=== PATIENT | female | born 1950 | race Caucasian/White ===

== ENCOUNTER 2016-09-22 05:44 | Observation (INO) | payer BC, OTHER ==
--- NOTE | ~2016-09-22 | HP ---
History And Physical [facility] [address] [place]. [address] NAME: KATIE RAMIREZ : 52 STATUS : ADM Darell PAT#: [id number] AGE: 66 ADM/REG DATE : 09/22/16 MR#: [id number] REPORT SERV DATE: 09/22/16 DICTATED BY: CAROLYN CINTRON DATE: 09/22/16 REPORT STATUS : Draft TRANSCRIBED BY: MODL DATE: 09/22/16 DATE OF ADMISSION: 09/22/2016 CHIEF COMPLAINT: A 66-year-old female with progressive cirrhosis and now lower extremity edema and evidence of ascites. HISTORY OF PRESENTING ILLNESS: The patient's history was obtained through an interview with patient coupled with review of [facility] records. The patient has longstanding cirrhosis but has been progressing. She has been told recently that it is secondary to PENNY, with her previous records that seemed to indicate there may be a component of autoimmune hepatitis as well. She has had lymphedema, pancytopenia, varices, and hepatic encephalopathy. Recently, she has had increasing abdominal bloating that has been pressing on her chest making her feel short of breath. She states that the swelling is "climbing up and up." She has also had increasing lower extremity edema that has become increasingly uncomfortable. It seems that the right leg is more pronounced than the left and the right leg has more pain, and it is aching, tight, and shooting pain that gets up to 9/10 severity making it difficult to walk. She describes shortness of breath characterized by dyspnea on exertion, but no specific orthopnea is described. No cough. She has had nausea and some episodes of vomiting, but there has been no blood in her vomit. No bright red blood per rectum. No diarrhea. The last three days have been the worst she has felt from these symptoms. REVIEW OF SYSTEMS: Otherwise, a complete review of systems was obtained and was negative. PAST MEDICAL HISTORY: 1. PENNY cirrhosis with possible component of autoimmune hepatitis as well? 2. Pancytopenia. 3. Lymphedema. 4. Varices with history of banding. 5. Hepatic encephalopathy. 6. Diabetes. 7. Esophageal stricture with dilatation seen by Dr. Roque. 8. Obstructive sleep apnea. 9. Urinary tract infection. 10.Nephrolithiasis. PAST SURGICAL HISTORY: and hemorrhoidectomy. History And Physical [place] [address] [place]. [address] NAME: AKTIE RAMIREZ : 52 STATUS : ADM Darell PAT#: [id number] AGE: 66 ADM/REG DATE : 09/22/16 MR#: [id number] REPORT SERV DATE: 09/22/16 DICTATED BY: CAROLYN CINTRON DATE: 09/22/16 REPORT STATUS : Draft TRANSCRIBED BY: JODY DATE: 09/22/16 ALLERGIES: NO KNOWN DRUG ALLERGIES. SOCIAL HISTORY: No tobacco abuse. No alcohol abuse. She lives with her son. She is single. FAMILY HISTORY: Cancer and diabetes. CURRENT MEDICATIONS: She is on a dose of Lasix and spironolactone, but otherwise medications unknown at this time, that have been requested by Pharmacy. PHYSICAL EXAMINATION: VITAL SIGNS: Temperature 98.1, pulse 90, blood pressure 141/72, respiratory rate 20, O2 saturation 96% on room air. GENERAL: Pleasant, cooperative female, in no evidence of severe distress at this time. HEENT: Pupils equal, round, and reactive to light. No conjunctival pallor. No scleral icterus. Nares are patent. Oropharynx is clear of obstruction. Moist mucous membranes. NECK: Trachea midline. No thyromegaly. LYMPH: No cervical lymphadenopathy. No supraclavicular lymphadenopathy. RESPIRATORY: Clear to auscultation at bases. No wheezes. No rales. No rhonchi. A slightly labored respiratory effort. CARDIOVASCULAR: Regular rate and rhythm. No murmurs, rubs, or gallops. The patient have deeply pitting lower extremity edema that extends up to the groin and upper thigh symmetrically to by exam. There may be some slight increased swelling around her knee and calf in the right side compared to the left. ABDOMEN: Has significant distention with what seems to be a positive fluid wave. It is tender throughout, but not to the point of guarding or rebound. She has no appreciable hepatosplenomegaly by exam. DERMATOLOGICAL: Warm and dry extremities. No pallor. No cyanosis. PSYCHIATRIC: Normal affect. Good mood. Alert and oriented x3. LABORATORY DATA: White blood count 8.9, hemoglobin 14, hematocrit 34, platelets 122. Sodium 141, potassium 4.0, chloride 107, bicarb 23, BUN 20, creatinine 1.52, glucose 144, brain natriuretic peptide 58, albumin 2.0. INR 1.5. AST 111, ALT 61, alkaline phosphatase 237, total bilirubin 3.8. STUDIES: CT scan of the abdomen shows moderate ascites, cirrhosis, splenomegaly, nephrolithiasis. ASSESSMENT AND PLAN: 1. Anasarca, place on IV Lasix, spironolactone. 2. Ascites, obtain an ultrasound-guided paracentesis for therapeutic measures. 3. PENNY cirrhosis with history of autoimmune hepatitis as well. 4. Renal insufficiency. History And Physical [address] [address] NAME: KATIE RAMIREZ : 52 STATUS : ADM Darell PAT#: [id number] AGE: 66 ADM/REG DATE : 09/22/16 MR#: [id number] REPORT SERV DATE: 09/22/16 DICTATED BY: CAROLYN CINTRON DATE: 09/22/16 REPORT STATUS : Draft TRANSCRIBED BY: MODJose G DATE: 09/22/16 KPL/JODY Carolyn Cintron M.D. / [id number] CC: Johny Mendez M.D.
--- NOTE | ~2016-09-22 | DS ---
Discharge Summary [place] [address] [place]. [address] NAME: KATIE RAMIREZ : 52 STATUS : DIS Darell PAT#: [id number] AGE: 66 ADM/REG DATE : 09/22/16 MR#: [id number] REPORT SERV DATE: 09/25/16 DICTATED BY: MARV MOON DATE: 09/24/16 REPORT STATUS : Draft TRANSCRIBED BY: MODL DATE: 09/24/16 ADMISSION DATE: 09/22/2016 DISCHARGE DATE: 09/24/2016 DISCHARGE DIAGNOSES: Include: 1. Anasarca, severe. 2. Ascites, severe. 3. Nonalcoholic steatohepatitis cirrhosis. 4. Acute kidney injury on chronic kidney disease, stage 3. 5. Hypoalbuminemia, most recent albumin 2.3. 6. Mild leukocytosis, resolved; most recent white blood cells 10.1. 7. Diabetes type 2, controlled, with hemoglobin A1c of 6.0. DISCHARGE MEDICINES: As follows: Bumex 1 mg daily, new prescription written; Levemir insulin 32 units subcutaneously at bedtime; Reglan 5 mg four times a day; Prilosec 40 mg twice a day; Xifaxan 550 mg twice a day; Aldactone 100 mg twice a day; Carafate 1 g p.o. twice a day; Voltaren topical gel, 1%, apply daily p.r.n.; Mag-Ox 400 mg daily; potassium 10 mEq daily; and tramadol 50 mg every 4 to 6 hours p.r.n. for pain. HISTORY OF PRESENT ILLNESS: This is a very pleasant 66-year-old female who presented with significant lower extremity edema and ascites; please see the initial H and P of Dr. Augustine Castelan. This patient was admitted to the Hospitalist Service for further evaluation and treatment. She was given IV diuresis and lab work was ordered and followed. PROCEDURES AND IMAGING DURING THIS ADMISSION: Included a CT of the abdomen and pelvis showing moderate ascites throughout the abdomen and pelvis, diffuse subcutaneous edema and anasarca, cirrhotic liver, mild splenomegaly, varices surrounding the lower thoracic esophagus as well as within the anterior abdominal wall compatible with portal hypertension; venous Doppler ultrasound of the lower extremities showing no evidence for DVT on the right or left. Paracentesis performed on 09/22/2016, successful evacuation of 3500 mL of clear yellow fluid. HOSPITAL COURSE: I began seeing the patient on 09/22/2016, and in review, noted significantly low albumin, so her Lasix was discontinued and IV Bumex and albumin were utilized for aggressive diuresis which she tolerated well. Paracentesis was performed, and she tolerated that well with 3500 mL of fluid aspirated. She was switched to p.o. Bumex on 09/23/2016, and I have discussed with the patient discharging home on p.o. Bumex as well and not to resume her Lasix dose. She continued to do well, was able to ambulate in the room, feeling significantly better, and was felt safe for discharge home on 09/24/2016 with followup with primary care in two to three weeks and follow up with GI, Dr. Roque, in two to three weeks as well. Instructed her to recheck her BMP at that time. The patient is agreement with this plan going forward, so we discharged home with above medicines. Please note greater than 30 minutes was spent on this discharge, for new medication teaching, follow up planning, and further disposition. Discharge Summary [place] [address] [place]. [address] NAME: KATIE RAMIREZ : 52 STATUS : DIS Darell PAT#: [id number] AGE: 66 ADM/REG DATE : 09/22/16 MR#: [id number] REPORT SERV DATE: 09/25/16 DICTATED BY: MARV MOON DATE: 09/24/16 REPORT STATUS : Draft TRANSCRIBED BY: JODY DATE: 09/24/16 MARYELLEN/JODY Marv Moon NP / [id number]
[2016-09-22 02:16] LABS: BASOPHILS 0.6 %; BASOPHILS ABSOLUTE 0.05 10/3/uL (0.0-0.16); EOSINOPHILS 2.7 %; EOSINOPHILS ABSOLUTE 0.24 10/3/uL (0.0-0.53); ER CBC TAT 0 Hrs 07 Mins; HEMATOCRIT 39.1 % (36.0-48.0); HEMOGLOBIN 13.8 g/dL (12.0-16.0); IMMATURE GRANULOCYTES 0.4 %; IMMATURE GRANULOCYTES ABSOLUTE 0.04 10/3/uL (0.0-0.11); LYMPHOCYTES 17.2 %; LYMPHOCYTES ABSOLUTE 1.53 10/3/uL (0.67-4.30); MEAN CORPUS HGB CONC 35.3 g/dL (32.0-36.0); MEAN CORPUSCULAR HEMOGLOB 34.2 pg (26.0-34.0); MEAN PLATELET VOLUME 11.9 fL (9.2-13.0); MONOCYTES 16.3 %; MONOCYTES ABSOLUTE 1.45 10/3/uL (0.21-1.20); NEUTROPHILS 62.8 %; NEUTROPHILS ABSOLUTE 5.58 10/3/uL (2.02-8.40); PLATELET COUNT 122 10/3/uL (150-400); RED CELL COUNT 4.03 10/6/uL (4.0-5.6); WHITE BLOOD CELLS 8.9 10/3/uL (4.5-10.5)
[2016-09-22 02:17] LABS: MANUAL DIFF NO %
[2016-09-22 02:23] LABS: INTERNATIONAL NORMAL RATI 1.5 UNITS (-); PARTIAL THROMBO TIME 37.6 SEC (22.5-37.2); PROTIME (NOT ORD) 17.7 SEC (12.0-14.5)
[2016-09-22 02:35] LABS: A/G RATIO 0.4 (0.7-1.9); ALKALINE PHOSPHATASE 237 U/L (45-117); BUN (BLOOD UREA NITROGEN) 20 MG/DL (6-23); CALCIUM, SERUM 8.2 MG/DL (8.5-10.4); CHLORIDE, SERUM 107 MMOL/L (96-112); CO2 (CARBON DIOXIDE) 23 MMOL/L (24-34); CREATININE 1.52 MG/DL (0.55-1.02); DIRECT BILIRUBIN 1.5 MG/DL (0.0-0.4); GFR AFRICAN AMERICAN 41 ML/MIN (>=60); GFR NON AFRICAN AMERICAN 36 ML/MIN (>=60); GLUCOSE, SERUM 144 MG/DL (60-99); INDIRECT BILIRUBIN(NOT ORDER) 2.3 MG/DL (0.1-0.9); SGOT(AST) 111 U/L (5-40); SGPT(ALT) 61 U/L (5-65); SODIUM, SERUM 141 MMOL/L (135-148); TOTAL BILIRUBIN 3.8 MG/DL (0-1.2)
[2016-09-22 02:38] LABS: B NATRIURETIC PEPTIDE (BNP) 57.6 PG/ML (< 100.0)
[~2016-09-22 05:44] MED LIST: *UNABLE3; AMOXIL500 MG PO; DEXTROAMPHET10 MG PO; FOLIC PO; GENERLAC PO; GLUCOPHAGE1000 MG PO; GLUCPH PO; I10 PO; JANUVIA100 MG PO; KAPIDEX60 MG PO; L20 PO; L40 PO; LACT30UDL PO; LEVEMIR SC; LOM PO; LYRICA100 MG PO; METHOC750B PO; MOBIC15 MG PO; NYSTATPOW TOP; OXYCOD PO; PRILO PO; PRILOSEC40 MG PO; PRIN5 PO; QNASL8.7 GM NAS; REG5 PO; SPIRO50 PO; SUCR PO; XIFAXAN550 MG PO
[2016-09-22] MEDS ORDERED: SPIR100 PO (08:17)
[2016-09-22] MEDS ORDERED: PRILOSEC40 MG PO (08:17)
[2016-09-22] MEDS ORDERED: LEVEMFLXPN SC (08:17)
[2016-09-22] MEDS ORDERED: REG5 PO (08:18)
[2016-09-22] MEDS ORDERED: XIFAXAN550 MG PO (08:18)
[2016-09-22] MEDS ORDERED: L40 PO (08:18)
[2016-09-22] MEDS ORDERED: SUCR PO (08:18)
[2016-09-22] MEDS ORDERED: VOLTAREN1 % TOP (08:19)
[2016-09-23 04:56] LABS: BASOPHILS 0.2 %; BASOPHILS ABSOLUTE 0.02 10/3/uL (0.0-0.16); EOSINOPHILS 0.7 %; EOSINOPHILS ABSOLUTE 0.09 10/3/uL (0.0-0.53); HEMOGLOBIN 11.2 g/dL (12.0-16.0); IMMATURE GRANULOCYTES 0.4 %; IMMATURE GRANULOCYTES ABSOLUTE 0.05 10/3/uL (0.0-0.11); LYMPHOCYTES 9.2 %; LYMPHOCYTES ABSOLUTE 1.13 10/3/uL (0.67-4.30); MEAN CORPUSCULAR HEMOGLOB 33.9 pg (26.0-34.0); MEAN PLATELET VOLUME 11.3 fL (9.2-13.0); MONOCYTES 4.9 %; NEUTROPHILS 84.6 %; NEUTROPHILS ABSOLUTE 10.35 10/3/uL (2.02-8.40); PLATELET COUNT 96 10/3/uL (150-400); RBC DISTRIBUTION WIDTH 16.1 % (12.0-16.0); WHITE BLOOD CELLS 12.2 10/3/uL (4.5-10.5)
[2016-09-23 04:57] LABS: MANUAL DIFF NO %
[2016-09-23 05:12] LABS: INTERNATIONAL NORMAL RATI 1.8 UNITS (-); PARTIAL THROMBO TIME 38.3 SEC (22.5-37.2)
[2016-09-23 05:13] LABS: PROTIME (NOT ORD) 20.6 SEC (12.0-14.5)
[2016-09-23 05:25] LABS: ALBUMIN 2.3 G/DL (3.5-5.0); BUN (BLOOD UREA NITROGEN) 19 MG/DL (6-23); CALCIUM, SERUM 7.7 MG/DL (8.5-10.4); CHLORIDE, SERUM 101 MMOL/L (96-112); CO2 (CARBON DIOXIDE) 23 MMOL/L (24-34); CREATININE 1.53 MG/DL (0.55-1.02); GFR AFRICAN AMERICAN 41 ML/MIN (>=60); GFR NON AFRICAN AMERICAN 35 ML/MIN (>=60); GLUCOSE, SERUM 158 MG/DL (60-99); POTASSIUM, SERUM 4.2 MMOL/L (3.5-5.3); SGOT(AST) 81 U/L (5-40); SGPT(ALT) 47 U/L (5-65); SODIUM, SERUM 135 MMOL/L (135-148); TOTAL PROTEIN 6.2 G/DL (6.0-8.5); TROPONIN I <0.02 NG/ML (<0.05)
[2016-09-23 05:26] LABS: A/G RATIO 0.6 (0.7-1.9); ALKALINE PHOSPHATASE 157 U/L (45-117); GLOBULIN 3.9 G/DL (2.5-4.1); TOTAL BILIRUBIN 4.8 MG/DL (0-1.2)
[2016-09-23 12:14] LABS: ASCORBIC ACID (UR NOT ORDER) NEG (NEG); BILIRUBIN, URINE NEGATIVE (NEG); KETONE, URINE NEGATIVE (NEG); LEUKOCYTE ESTERASE(NOT OR NEG (NEG); WBC (NOT ORDERED) (RFLEX) 1 (0-5)
[2016-09-24 07:34] LABS: BUN (BLOOD UREA NITROGEN) 21 MG/DL (6-23); CALCIUM, SERUM 7.5 MG/DL (8.5-10.4); CHLORIDE, SERUM 100 MMOL/L (96-112); CO2 (CARBON DIOXIDE) 26 MMOL/L (24-34); CREATININE 1.55 MG/DL (0.55-1.02); GFR AFRICAN AMERICAN 40 ML/MIN (>=60); GFR NON AFRICAN AMERICAN 35 ML/MIN (>=60); GLUCOSE, SERUM 140 MG/DL (60-99); SODIUM, SERUM 136 MMOL/L (135-148)
[2016-09-24 07:35] LABS: BASOPHILS 0.3 %; BASOPHILS ABSOLUTE 0.03 10/3/uL (0.0-0.16); EOSINOPHILS 0.9 %; EOSINOPHILS ABSOLUTE 0.09 10/3/uL (0.0-0.53); HEMATOCRIT 30.2 % (36.0-48.0); HEMOGLOBIN 10.7 g/dL (12.0-16.0); IMMATURE GRANULOCYTES 1.1 %; IMMATURE GRANULOCYTES ABSOLUTE 0.11 10/3/uL (0.0-0.11); LYMPHOCYTES 9.3 %; LYMPHOCYTES ABSOLUTE 0.94 10/3/uL (0.67-4.30); MEAN CORPUS HGB CONC 35.4 g/dL (32.0-36.0); MEAN CORPUSCULAR HEMOGLOB 33.8 pg (26.0-34.0); MEAN CORPUSCULAR VOLUME 95.3 fL (80-100); MEAN PLATELET VOLUME 12.1 fL (9.2-13.0); MONOCYTES 12.7 %; MONOCYTES ABSOLUTE 1.28 10/3/uL (0.21-1.20); NEUTROPHILS 75.7 %; NEUTROPHILS ABSOLUTE 7.63 10/3/uL (2.02-8.40); PLATELET COUNT 75 10/3/uL (150-400); RED CELL COUNT 3.17 10/6/uL (4.0-5.6); WHITE BLOOD CELLS 10.1 10/3/uL (4.5-10.5)
[2016-09-24 07:39] LABS: MANUAL DIFF NO %
[2016-09-24] MEDS ORDERED: BUM1 PO (15:36)
[2016-09-24] MEDS ORDERED: ULTRAM50 PO (15:36)
[2016-09-24] MEDS ORDERED: MAGOX4 PO (15:37)
[2016-09-24] MEDS ORDERED: KDUR10 PO (15:38)
[2016-12-20] MEDS ORDERED: XIFAXAN550 MG PO (17:00)
[2016-12-20] MEDS ORDERED: BUM1 PO (17:00)
[2016-12-20] MEDS ORDERED: ULTRAM50 PO (17:01)
[2016-12-20] MEDS ORDERED: VOLTAREN1 % TOP (17:03)
[2016-12-20] MEDS ORDERED: LEVEMIR SC (17:04)
[2016-12-20] MEDS ORDERED: REG5 PO (17:05)
[2016-12-20] MEDS ORDERED: PRILOSEC40 MG PO (17:05)
[2016-12-20] MEDS ORDERED: SPIR100 PO (17:06)
[2016-12-20] MEDS ORDERED: KDUR10 PO (17:06)
[2016-12-20] MEDS ORDERED: SUCR PO (17:07)
[2017-03-03] MEDS ORDERED: BUM1 PO (03:57)
[2017-03-03] MEDS ORDERED: LEVEMIR SC (03:57)
[2017-03-03] MEDS ORDERED: LOP25 PO (03:58)
[2017-03-03] MEDS ORDERED: REG5 PO (03:58)
[2017-03-03] MEDS ORDERED: SPIRO50 PO (03:59)
[2017-03-03] MEDS ORDERED: PROTONIX PO (03:59)
[2017-03-03] MEDS ORDERED: ZOL50 PO (04:00)
[2017-03-03] MEDS ORDERED: XIFAXAN550 MG PO (04:00)
[2017-03-03] MEDS ORDERED: ULTRAM50 PO (04:01)
[2017-03-29] MEDS ORDERED: GENERLAC PO (18:46)
[2017-03-29] MEDS ORDERED: SUCR PO (18:47)
== END 2016-09-24 18:47 | disposition home or self-care (01) ==
LOC: ER 05:44 → 1SO 06:37
PROVIDERS: Hospitalist; Nurse Practitioner; Nurse Practitioner Family
PROC: 0W9G3ZZ Drainage of Peritoneal Cavity, Percutaneous Approach (ICD-10-PCS; principal; 2016-09-22)
DX: R18.8 Other ascites (principal); K74.60 Unspecified cirrhosis of liver; E11.22 Type 2 diabetes mellitus with diabetic chronic kidney disease; N18.3 Chronic kidney disease, stage 3 (moderate); N17.9 Acute kidney failure, unspecified; E88.09 Other disorders of plasma-protein metabolism, not elsewhere classified; M19.90 Unspecified osteoarthritis, unspecified site; I12.9 Hypertensive chronic kidney disease with stage 1 through stage 4 chronic kidney disease, or unspecified chronic kidney disease; D61.818 Other pancytopenia; G47.33 Obstructive sleep apnea (adult) (pediatric); Z87.440 Personal history of urinary (tract) infections; Z87.442 Personal history of urinary calculi; Z98.890 Other specified postprocedural states; Z79.899 Other long term (current) drug therapy; Z83.3 Family history of diabetes mellitus; Z90.89 Acquired absence of other organs
CPT/HCPCS: 49083; 74176; 80048; 80053; 81001; 82140; 82248; 82962; 83036; 83735; 83880; 84443; 84484; 85025; 85610; 85730; 87040; 93970; 96375; 96376; 99285; A9270-GY; G0378; J2405; P9047

== ENCOUNTER 2016-10-16 20:15 | Inpatient (IN) | payer BC, OTHER ==
--- NOTE | ~2016-10-16 | DS ---
Discharge Summary [facility] [address] [place]. [address] NAME: KATIE RAMIREZ : 52 STATUS : [facility]#: [id number] AGE: 66 ADM/REG DATE : 10/16/16 MR#: [id number] REPORT SERV DATE: 10/21/16 DICTATED BY: SIM ANDRADE DATE: 10/20/16 REPORT STATUS : Draft TRANSCRIBED BY: MODL DATE: 10/20/16 ADMISSION DATE: 10/16/2016 DISCHARGE DATE: 10/20/2016 Attending was the Hospitalist Service. CONSULTANTS: Cruz Roque M.D. DISCHARGE DIAGNOSES: 1. Anasarca. 2. Ascites. 3. Nonalcoholic steatohepatitis cirrhosis. 4. Diabetes mellitus type 2. 5. Hypoalbuminemia. 6. Pancytopenia. 7. Coagulopathy of liver disease. 8. Chronic lymph edema. 9. Obstructive sleep apnea. 10.Morbid obesity. 11.Chronic kidney disease, stage 3. PROCEDURES: On 10/17/2016, the patient underwent a paracentesis with a technically successful ultrasound-guided paracentesis and 3.5 L of fluid evacuated. IMAGIN10/16/2016: Portable chest x-ray revealed no acute cardiopulmonary abnormality identified. LABORATORY STUDIES: Discharge laboratory studies: 1. 10/20/2016: Hepatic panel and basic metabolic panel revealed a sodium of 142, potassium 4.1, chloride 103, CO2 of 31, BUN 20, creatinine 1.29, GFR 43. Glucose 90, calcium 8.7, magnesium 1.6, total protein 6.3, albumin 3.5, direct bilirubin 0.9, indirect bilirubin 3.3, total bilirubin 4.2, alkaline phosphatase 143, ALT 31, AST 59. 2. 10/20/2016: CBC revealed a white count of 4.6, RBC 2.91, hemoglobin 9.8, hematocrit 28.4, and platelets 82,000. PT 22.9 and INR 2.0. 3. 10/16/2016: Ammonia level 23. 4. 10/16/2016: BMP 54.2. HISTORY OF PRESENT ILLNESS: For complete history, please refer to admission H and P by Dr. Shawn Burnett. Briefly, Ms Grant, presented to the emergency room on date of admission with complaints of abdominal bloating, distention, and shortness of breath. She has a history of non- alcoholic steatohepatitis cirrhosis with chronic lower extremity lymphedema and recurrent ascites. She described a progressively worsening abdominal distention, bloating, and shortness of breath and lower extremity edema. She was admitted to the Hospitalist Service for further evaluation and treatment. Discharge Summary [place] [address] [address] NAME: KATIE RAMIREZ : 52 STATUS : DIS IN [facility]#: [id number] AGE: 66 ADM/REG DATE : 10/16/16 MR#: [id number] REPORT SERV DATE: 10/21/16 DICTATED BY: SIM ANDRADE DATE: 10/20/16 REPORT STATUS : Draft TRANSCRIBED BY: JODY DATE: 10/20/16 HOSPITAL COURSE: Ms. Ramirez was admitted to Med/Surg telemetry. She was provided with supplemental oxygen p.r.n. She was given an 1800 calorie ADA diet 2 g sodium restriction with 1.2 L fluid restriction. Laboratory studies were ordered. She was provided with DVT prophylaxis in the form of DERRICK hose and sequential hose. She was provided with p.r.n. antiemetics as well as a subcu insulin sliding scale. She was scheduled for ultrasound- guided paracentesis upon admission. She was also given IV diuretics in the form of Bumex 1 mg IV q.12 hours. In addition, she received albumin 25 g IV q.12 hours 30 minutes prior to IV diuretic. I initially saw the patient on 10/17/2016 as she was getting on the stretcher to go have her paracentesis. She complained of significant dyspnea on exertion and was dyspneic just moving up in the stretcher. Her vital signs were stable, and she describes like feeling "like I am 9 months ." She underwent a successful paracentesis as above. Dr. Roque was consulted upon admission and saw Ms. Grant on 10/17/2016 with recommendations for increasing her albumin to four times a day with the ultimate goal of reaching an albumin level of greater than 4.0. On 10/18/2016, Ms. Grant was feeling much better. IV diuresis and IV albumin continued. Her albumin level increased to 2.4 on this date, from 2.0 initially. certified diabetes educator did see the patient on 10/18/2016. On 10/19/2016, Ms. Ramirez was continuing to feel much better. Her weight was coming down nicely with the diuresis. Her lower extremity edema was improving. She denied any shortness of breath or any other symptoms. On 10/19/2016, Dr. Roque saw her in the evening and was okay with discharging the patient with albumin level of 3.3 or greater. On 10/20/2016, Ms. Ramirez, was overall doing well. Her weight had come down from 142 kg to 130 kg. She denied any shortness of breath. Her oxygen saturation was running from 95% to 98%. Blood pressure was 133/64. She was in no acute distress and was requesting to go home. Her bilateral lower extremity edema improved. She was tolerating her diet without any nausea or vomiting. She was up ambulatory in the room. She denied shortness of breath and overall improved significantly from her admission. Therefore, it was felt that she was safe for discharge home. Therefore, on the evening of 10/20/2016, she did discharge home in stable condition. DISCHARGE INSTRUCTIONS: 1. Diet: An 1800 calorie ADA, 2 g sodium diet is recommended. 2. Activity as tolerated. MEDICATIONS: Are as follows: 1. Sliding scale insulin level 1 q.a.c. 2. Magnesium oxide 400 mg p.o. daily. 3. Reglan 5 mg p.o. before meals and at bedtime. 4. Prilosec 40 mg p.o. b.i.d. 5. Potassium chloride 10 mEq p.o. daily. 6. Xifaxan 550 mg p.o. b.i.d. 7. Aldactone 100 mg p.o. b.i.d. 8. Carafate 1 g p.o. b.i.d. 9. Levemir insulin 26 units subcu at bedtime. 10.Bumex 1 mg p.o. daily. 11.Tramadol 50 mg p.o. four times a day p.r.n. 12.Voltaren gel topically p.r.n. Discharge Summary [facility] [address] [place]. [address] NAME: KATIE RAMIREZ : 52 STATUS : DIS IN [facility]#: [id number] AGE: 66 ADM/REG DATE : 10/16/16 MR#: [id number] REPORT SERV DATE: 10/21/16 DICTATED BY: SIM ANDRADE DATE: 10/20/16 REPORT STATUS : Draft TRANSCRIBED BY: JODY DATE: 10/20/16 OTHER DISCHARGE INSTRUCTIONS: Include Ms. Grant is to follow up with her primary care provider, Carol Hernandez, nurse practitioner, at [facility] in 7-10 days. She will also follow up with Dr. Roque in one month. VICENTE/JODY SHAKIR CamachoP- / [id number] CC: Carol Roque M.D.
--- NOTE | ~2016-10-16 | HP ---
History And Physical [place] [address] [place]. [address] NAME: KATIE RAMIREZ : 52 STATUS : ADM IN [facility]#: [id number] AGE: 66 ADM/REG DATE : 10/16/16 MR#: [id number] REPORT SERV DATE: 10/17/16 DICTATED BY: DILLON LAFLEUR DATE: 10/16/16 REPORT STATUS : Draft TRANSCRIBED BY: MODJose G DATE: 10/16/16 DATE OF ADMISSION: 10/16/2016 POINT OF ENTRY: [facility] Emergency Department [employer] COOK: Dr. Roque. CHIEF COMPLAINT: Abdominal bloating, distention, and shortness of breath. HISTORY OF PRESENT ILLNESS: Ms Ramirez is a 66-year-old female with history of PENNY, cirrhosis, complicated by chronic lower extremity lymphedema, as well as recurrent ascites, pancytopenia, and portal hypertension with esophageal varices who presents to the emergency department today with reports of a two to three-day history of progressive worsening abdominal bloating, distention, shortness of breath, as well as lower extremity edema. The patient was admitted to the Hospitalist Service in middle of September for similar complaints of ascites and anasarca. She underwent paracentesis which removed 3.5 L of fluid as well as brisk IV diuresis for patient's anasarca. The patient states that at the time of discharge, she was feeling well. She had minimal lower extremity edema. She had no shortness of breath or dyspnea on exertion and her abdominal bloating and distention has significantly improved. Since discharge, the patient states compliance with her Bumex as well as her Aldactone. She states that she generally avoids salt, but says that she is not strictly adherent to sodium- restricted diet. She is not tracking her fluid intake nor is she weighing herself on a daily basis. Beginning about two to three days ago, she started to notice fluid buildup primarily in her abdomen with bloating and distention as well as anorexia and some shortness of breath. She does report some lower extremity which may be slightly worsened, but is still significantly improved compared to her prior admission Initial evaluation in the emergency department for a chest x-ray that is clear. Her labs are fairly unremarkable and unchanged compared to prior admission. The patient was given a milligram of IV Bumex and admitted to the Hospitalist Service. COMPREHENSIVE SYSTEM REVIEW: Otherwise, negative unless listed in the history of present illness. PAST MEDICAL HISTORY: 1. Nonalcoholic steatohepatitis with cirrhosis. 2. Portal hypertension with esophageal varices, status post banding. 3. Recurrent ascites. 4. Lymphedema and anasarca. 5. Pancytopenia. 6. History of hepatic encephalopathy. History And Physical [address] [address] NAME: KATIE RAMIREZ : 52 STATUS : ADM IN [facility]#: [id number] AGE: 66 ADM/REG DATE : 10/16/16 MR#: [id number] REPORT SERV DATE: 10/17/16 DICTATED BY: DILLON LAFLEUR DATE: 10/16/16 REPORT STATUS : Draft TRANSCRIBED BY: JODY DATE: 10/16/16 7. Insulin-dependent diabetes mellitus type 2. 8. Obstructive sleep apnea. 9. Morbid obesity. 10.History of chronic kidney stage III. 11.Hypoalbuminemia. SURGICAL HISTORY: 1. . 2. Hemorrhoidectomy. ALLERGIES: NO KNOWN DRUG ALLERGIES. HOME MEDICATIONS: 1. Bumex 1 mg daily. 2. Voltaren topical gel one application topical p.r.n. daily. 3. Insulin sliding scale. 4. Levemir 32 units at bedtime. 5. Magnesium oxide 400 mg daily. 6. Reglan 5 mg q.i.d. 7. Prilosec 40 mg b.i.d. 8. Potassium chloride 10 mEq daily. 9. Rifaximin 500 mg b.i.d. 10.Aldactone 100 mg b.i.d. 11.Carafate 1 g b.i.d. 12.Tramadol 50 mg q.4 hours p.r.n. SOCIAL HISTORY: Denies any tobacco, alcohol, or illicits. FAMILY MEDICAL HISTORY: Mother with diabetes, hypertension, and obesity. Father with history of stomach cancer. Siblings history is largely unknown. LABS AND IMAGIN. White count is 9.3, hemoglobin is 13.3, hematocrit is 37.3, and platelet count is 104. INR is pending at the time of dictation. 2. Sodium is 139, potassium 4.1, chloride 107, carbon dioxide 23, BUN 10, creatinine 1.04, glucose is 154, calcium is 7.8. Protein is 6.9, albumin is 2.0, bilirubin is 4.5, ALT is 52, AST is 94, alkaline phosphatase is 323. 3. Lipase is 269. 4. BNP is 54. 5. Ammonia level is 23. 6. Urinalysis: Specific gravity 1.006, hazy, but no evidence of any infection. STUDIES: 1. Her chest x-ray, per my review, shows some mild pulmonary venous congestion, but otherwise, no focal infiltrate, consolidation, or effusion. 2. EKG, per my review shows normal sinus rhythm without evidence of any acute ischemia or infarction. History And Physical [address] [address] NAME: KATIE RAMIREZ : 52 STATUS : ADM IN [facility]#: [id number] AGE: 66 ADM/REG DATE : 10/16/16 MR#: [id number] REPORT SERV DATE: 10/17/16 DICTATED BY: DILLON LAFLEUR DATE: 10/16/16 REPORT STATUS : Draft TRANSCRIBED BY: JODY DATE: 10/16/16 PHYSICAL EXAMINATION: VITAL SIGNS: Temperature is 97.8 degrees Fahrenheit, pulse is 96, respirations 22, saturating 97% on room air, blood pressure is 122/75. GENERAL: The patient is awake, alert, in no acute distress. Resting comfortably in bed. She is a morbidly obese, female. Family is at bedside. HEENT: Atraumatic and normocephalic. Moist mucous membranes. Pupils are equal, round, reactive to light and accommodation. Extraocular eye movements are intact. Some very faint scleral icterus. NECK: No jugular venous distention. No carotid bruits. CARDIAC: Regular rate and rhythm. No murmurs, rubs, or gallops. Normal S1, S2. LUNGS: Decreased breath sounds in the bases with some faint inspiratory rales bilateral bases, otherwise no wheezes, rhonchi, or crackles. ABDOMEN: Obese, soft, nontender, nondistended with good bowel sounds. Positive ascitic fluid wave. EXTREMITIES: Warm and well perfused with 1 to 2+ pitting lower extremity edema. SKIN: Warm and dry. PSYCH: Affect appropriate. NEURO: Alert and oriented x3. Cranial nerves II through XII grossly intact. Speech is normal. Gait not assessed. ASSESSMENT AND PLAN: Ms Ramirez is a 66-year-old female with a known history of nonalcoholic steatohepatitis, cirrhosis, who presents with a two- to three-day history of fluid buildup with lower extremity edema, abdominal bloating, and distention. Problem list: 1. Recurrent ascites. 2. Anasarca. 3. Nonalcoholic steatohepatitis with cirrhosis. 4. Hypoalbuminemia. 5. Insulin-dependent diabetes mellitus type 2. 6. Morbid obesity. 7. Transaminitis. 8. Thrombocytopenia. 9. Coagulopathy of liver disease. 10.History of portal hypertension with esophageal varices. PLAN: 1. Ascites. It appears that she has reaccumulated abdominal ascites. We will schedule her an ultrasound-guided paracentesis. Continue the patient on diuretics with IV Bumex as well as Aldactone with fluid and sodium restriction. 2. Anasarca. We will place her on Bumex 1 mg IV b.i.d. as well as her home Aldactone. We will schedule for albumin administration prior to Bumex therapy to assist with diuresis. Also, encourage fluid and sodium restriction. 3. Hypoalbuminemia. We will provide albumin administration prior to Bumex to assist with diuresis. 4. PENNY with cirrhosis. Per Gastroenterology, we will continue the patient's home History And Physical [address] [address] NAME: KATIE RAMIREZ : 52 STATUS : ADM IN [facility]#: [id number] AGE: 66 ADM/REG DATE : 10/16/16 MR#: [id number] REPORT SERV DATE: 10/17/16 DICTATED BY: DILLON LAFLEUR DATE: 10/16/16 REPORT STATUS : Draft TRANSCRIBED BY: MODL DATE: 10/16/16 medications. 5. Insulin-dependent diabetes mellitus type 2. Continue the patient's home long-acting insulin, level 2 insulin sliding scale. 6. History of coagulopathy of the liver disease. INR is pending at the time of dictation. We will place on TEDs and SCDs given bleeding risk. 7. Shortness of breath. I suspect that this is mainly due to fluid buildup in her abdomen as I do not appreciate any significant evidence of intravascular volume overload, both clinically or radiographically, and BNP is within normal limits. We will provide DuoNeb p.r.n. 8. DVT prophylaxis. TEDs and SCDs, given thrombocytopenia and coagulopathy. 9. Code Status: The patient wished to be full code. JCLobo/MODJose G Dillon Lafleur MD / [id number] CC: Johny Lawler M.D. Richard Sadowitz, M.D.
[~2016-10-16 20:15] MED LIST changes: +BUM1 PO; +KDUR10 PO; +LEVEMFLXPN SC; +MAGOX4 PO; +SPIR100 PO; +ULTRAM50 PO; +VOLTAREN1 % TOP
[2016-10-16 21:14] LABS: BASOPHILS 0.6 %; BASOPHILS ABSOLUTE 0.06 10/3/uL (0.0-0.16); EOSINOPHILS 4.4 %; EOSINOPHILS ABSOLUTE 0.41 10/3/uL (0.0-0.53); ER CBC TAT 0 Hrs 10 Mins; IMMATURE GRANULOCYTES 0.4 %; IMMATURE GRANULOCYTES ABSOLUTE 0.04 10/3/uL (0.0-0.11); LYMPHOCYTES 15.2 %; LYMPHOCYTES ABSOLUTE 1.41 10/3/uL (0.67-4.30); MEAN CORPUS HGB CONC 35.7 g/dL (32.0-36.0); MEAN CORPUSCULAR HEMOGLOB 35.2 pg (26.0-34.0); MEAN PLATELET VOLUME 11.6 fL (9.2-13.0); MONOCYTES 13.8 %; MONOCYTES ABSOLUTE 1.28 10/3/uL (0.21-1.20); NEUTROPHILS 65.6 %; NEUTROPHILS ABSOLUTE 6.09 10/3/uL (2.02-8.40); RBC DISTRIBUTION WIDTH 18.1 % (12.0-16.0); RED CELL COUNT 3.78 10/6/uL (4.0-5.6); WHITE BLOOD CELLS 9.3 10/3/uL (4.5-10.5)
[2016-10-16 21:19] LABS: HEMATOCRIT 37.3 % (36.0-48.0); HEMOGLOBIN 13.3 g/dL (12.0-16.0); MANUAL DIFF NO %; MEAN CORPUSCULAR VOLUME 98.7 fL (80-100); PLATELET COUNT 104 10/3/uL (150-400)
[2016-10-16 21:24] LABS: CALCIUM, SERUM 7.8 MG/DL (8.5-10.4); CHLORIDE, SERUM 107 MMOL/L (96-112); CO2 (CARBON DIOXIDE) 23 MMOL/L (24-34); GLUCOSE, SERUM 154 MG/DL (60-99); POTASSIUM, SERUM 4.1 MMOL/L (3.5-5.3); SGOT(AST) 94 U/L (5-40); SGPT(ALT) 52 U/L (5-65); SODIUM, SERUM 139 MMOL/L (135-148); TOTAL BILIRUBIN 4.5 MG/DL (0-1.2); TOTAL PROTEIN 6.9 G/DL (6.0-8.5)
[2016-10-16 21:27] LABS: BUN (BLOOD UREA NITROGEN) 10 MG/DL (6-23)
[2016-10-16 21:28] LABS: A/G RATIO 0.4 (0.7-1.9); ALKALINE PHOSPHATASE 323 U/L (45-117); CREATININE 1.04 MG/DL (0.55-1.02); GFR AFRICAN AMERICAN 65 ML/MIN (>=60); GFR NON AFRICAN AMERICAN 56 ML/MIN (>=60); GLOBULIN 4.9 G/DL (2.5-4.1)
[2016-10-16 21:33] LABS: B NATRIURETIC PEPTIDE (BNP) 54.2 PG/ML (< 100.0)
[2016-10-16] MEDS ORDERED: MAGOX4 PO (21:55)
[2016-10-16] MEDS ORDERED: NOVOLOG SC (21:56)
[2016-10-16 22:02] LABS: ASCORBIC ACID (UR NOT ORDER) NEG (NEG); BILIRUBIN, URINE NEGATIVE (NEG); ER URINALYSIS TAT 0 Hrs 20 Mins; KETONE, URINE NEGATIVE (NEG); LEUKOCYTE ESTERASE(NOT OR NEG (NEG); NITRITE (URINE) NEG (NEG); WBC (NOT ORDERED) (RFLEX) 4 (0-5)
[2016-10-17 02:40] LABS: BASOPHILS 0.5 %; BASOPHILS ABSOLUTE 0.04 10/3/uL (0.0-0.16); EOSINOPHILS 4.7 %; EOSINOPHILS ABSOLUTE 0.36 10/3/uL (0.0-0.53); HEMATOCRIT 37.3 % (36.0-48.0); HEMOGLOBIN 12.9 g/dL (12.0-16.0); IMMATURE GRANULOCYTES 0.4 %; IMMATURE GRANULOCYTES ABSOLUTE 0.03 10/3/uL (0.0-0.11); LYMPHOCYTES 20.6 %; LYMPHOCYTES ABSOLUTE 1.56 10/3/uL (0.67-4.30); MANUAL DIFF NO %; MEAN CORPUS HGB CONC 34.6 g/dL (32.0-36.0); MEAN CORPUSCULAR HEMOGLOB 34.5 pg (26.0-34.0); MEAN CORPUSCULAR VOLUME 99.7 fL (80-100); MEAN PLATELET VOLUME 11.2 fL (9.2-13.0); MONOCYTES 14.1 %; MONOCYTES ABSOLUTE 1.07 10/3/uL (0.21-1.20); NEUTROPHILS 59.7 %; NEUTROPHILS ABSOLUTE 4.52 10/3/uL (2.02-8.40); PLATELET COUNT 100 10/3/uL (150-400); RBC DISTRIBUTION WIDTH 18.2 % (12.0-16.0); RED CELL COUNT 3.74 10/6/uL (4.0-5.6); WHITE BLOOD CELLS 7.6 10/3/uL (4.5-10.5)
[2016-10-17 02:46] LABS: INTERNATIONAL NORMAL RATI 1.6 UNITS (-); PARTIAL THROMBO TIME 37.9 SEC (22.5-37.2); PROTIME (NOT ORD) 18.8 SEC (12.0-14.5)
[2016-10-17 02:53] LABS: BUN (BLOOD UREA NITROGEN) 12 MG/DL (6-23); CHLORIDE, SERUM 108 MMOL/L (96-112); CO2 (CARBON DIOXIDE) 26 MMOL/L (24-34); GFR AFRICAN AMERICAN 55 ML/MIN (>=60); GFR NON AFRICAN AMERICAN 47 ML/MIN (>=60); GLUCOSE, SERUM 125 MG/DL (60-99); SODIUM, SERUM 143 MMOL/L (135-148)
[2016-10-17 03:04] LABS: FREE T4 1.36 NG/DL (0.76-1.46)
[2016-10-17 03:05] LABS: ULTRASENSITIVE TSH 5.64 MCIU/ML (0.358-3.740)
[2016-10-17 15:32] LABS: BF ALBUMIN 0.4 G/DL
[2016-10-17 16:36] LABS: BD FL LYMPH (NOT ORD) 42 %; BD FL SOURCE (NOT ORD) PERITONEAL; BF BASO (NOT OF) 0 %; BF LARGE MONONUCLEAR 50 %; BODY FLUID EOS (NOT ORD) 0 %; BODY FLUID SEG (NOT ORD) 8 %
[2016-10-17 18:28] LABS: BF TOTAL CELL CT (NOT ORD 187 /MM3; BODY FLUID RBC (NOT ORD) 357 /MM3
[2016-10-18 05:14] LABS: BASOPHILS 0.4 %; BASOPHILS ABSOLUTE 0.02 10/3/uL (0.0-0.16); EOSINOPHILS 3.1 %; EOSINOPHILS ABSOLUTE 0.15 10/3/uL (0.0-0.53); HEMOGLOBIN 10.4 g/dL (12.0-16.0); IMMATURE GRANULOCYTES 0.4 %; IMMATURE GRANULOCYTES ABSOLUTE 0.02 10/3/uL (0.0-0.11); LYMPHOCYTES 26.5 %; MEAN CORPUS HGB CONC 35.5 g/dL (32.0-36.0); MEAN CORPUSCULAR HEMOGLOB 34.9 pg (26.0-34.0); MEAN CORPUSCULAR VOLUME 98.3 fL (80-100); MEAN PLATELET VOLUME 11.6 fL (9.2-13.0); MONOCYTES ABSOLUTE 0.59 10/3/uL (0.21-1.20); NEUTROPHILS 57.6 %; NEUTROPHILS ABSOLUTE 2.83 10/3/uL (2.02-8.40); PLATELET COUNT 79 10/3/uL (150-400); RBC DISTRIBUTION WIDTH 18.2 % (12.0-16.0); WHITE BLOOD CELLS 4.9 10/3/uL (4.5-10.5)
[2016-10-18 05:15] LABS: HEMATOCRIT 29.3 % (36.0-48.0); MANUAL DIFF NO %; RED CELL COUNT 2.98 10/6/uL (4.0-5.6)
[2016-10-18 05:31] LABS: A/G RATIO 0.7 (0.7-1.9); ALBUMIN 2.4 G/DL (3.5-5.0); ALKALINE PHOSPHATASE 183 U/L (45-117); BUN (BLOOD UREA NITROGEN) 19 MG/DL (6-23); CALCIUM, SERUM 7.8 MG/DL (8.5-10.4); CHLORIDE, SERUM 105 MMOL/L (96-112); CO2 (CARBON DIOXIDE) 26 MMOL/L (24-34); CREATININE 1.31 MG/DL (0.55-1.02); DIRECT BILIRUBIN 1.9 MG/DL (0.0-0.4); GFR AFRICAN AMERICAN 49 ML/MIN (>=60); GFR NON AFRICAN AMERICAN 43 ML/MIN (>=60); GLOBULIN 3.3 G/DL (2.5-4.1); GLUCOSE, SERUM 146 MG/DL (60-99); POTASSIUM, SERUM 3.7 MMOL/L (3.5-5.3); SGOT(AST) 68 U/L (5-40); SGPT(ALT) 40 U/L (5-65); SODIUM, SERUM 142 MMOL/L (135-148); TOTAL BILIRUBIN 4.9 MG/DL (0-1.2); TOTAL PROTEIN 5.7 G/DL (6.0-8.5)
[2016-10-18 06:31] LABS: ANISOCYTOSIS 1+ (5-10/OIF) (0-5/OIF); PLATELET ESTIMATE DEC (ADEQUATE)
[2016-10-19 05:16] LABS: BASOPHILS 0.5 %; BASOPHILS ABSOLUTE 0.02 10/3/uL (0.0-0.16); EOSINOPHILS 2.7 %; HEMATOCRIT 28.9 % (36.0-48.0); HEMOGLOBIN 9.8 g/dL (12.0-16.0); IMMATURE GRANULOCYTES 0.3 %; IMMATURE GRANULOCYTES ABSOLUTE 0.01 10/3/uL (0.0-0.11); LYMPHOCYTES 27.5 %; LYMPHOCYTES ABSOLUTE 1.03 10/3/uL (0.67-4.30); MEAN CORPUS HGB CONC 33.9 g/dL (32.0-36.0); MEAN CORPUSCULAR HEMOGLOB 33.8 pg (26.0-34.0); MEAN CORPUSCULAR VOLUME 99.7 fL (80-100); MEAN PLATELET VOLUME 12.3 fL (9.2-13.0); MONOCYTES 15.2 %; MONOCYTES ABSOLUTE 0.57 10/3/uL (0.21-1.20); NEUTROPHILS 53.8 %; NEUTROPHILS ABSOLUTE 2.01 10/3/uL (2.02-8.40); PLATELET COUNT 63 10/3/uL (150-400); RBC DISTRIBUTION WIDTH 18.1 % (12.0-16.0); WHITE BLOOD CELLS 3.7 10/3/uL (4.5-10.5)
[2016-10-19 05:17] LABS: MANUAL DIFF NO %
[2016-10-19 05:47] LABS: ALBUMIN 2.9 G/DL (3.5-5.0); ALKALINE PHOSPHATASE 172 U/L (45-117); BUN (BLOOD UREA NITROGEN) 21 MG/DL (6-23); CALCIUM, SERUM 8.2 MG/DL (8.5-10.4); CHLORIDE, SERUM 107 MMOL/L (96-112); CO2 (CARBON DIOXIDE) 27 MMOL/L (24-34); GFR AFRICAN AMERICAN 50 ML/MIN (>=60); GFR NON AFRICAN AMERICAN 43 ML/MIN (>=60); GLUCOSE, SERUM 125 MG/DL (60-99); POTASSIUM, SERUM 4.1 MMOL/L (3.5-5.3); SGOT(AST) 59 U/L (5-40); SGPT(ALT) 32 U/L (5-65); SODIUM, SERUM 144 MMOL/L (135-148); TOTAL BILIRUBIN 3.5 MG/DL (0-1.2); TOTAL PROTEIN 5.9 G/DL (6.0-8.5)
[2016-10-19 06:26] LABS: PLATELET ESTIMATE DEC (ADEQUATE)
[2016-10-19 06:27] LABS: ANISOCYTOSIS 1+ (5-10/OIF) (0-5/OIF); POLYCHROMASIA 1+ (2-5/OIF) (0-1/OIF)
[2016-10-20 05:54] LABS: BASOPHILS 0.6 %; BASOPHILS ABSOLUTE 0.03 10/3/uL (0.0-0.16); EOSINOPHILS 3.7 %; EOSINOPHILS ABSOLUTE 0.17 10/3/uL (0.0-0.53); HEMATOCRIT 28.4 % (36.0-48.0); HEMOGLOBIN 9.8 g/dL (12.0-16.0); IMMATURE GRANULOCYTES 0.2 %; IMMATURE GRANULOCYTES ABSOLUTE 0.01 10/3/uL (0.0-0.11); LYMPHOCYTES 26.5 %; LYMPHOCYTES ABSOLUTE 1.23 10/3/uL (0.67-4.30); MEAN CORPUS HGB CONC 34.5 g/dL (32.0-36.0); MEAN CORPUSCULAR HEMOGLOB 33.7 pg (26.0-34.0); MEAN CORPUSCULAR VOLUME 97.6 fL (80-100); MEAN PLATELET VOLUME 11.6 fL (9.2-13.0); MONOCYTES 16.6 %; MONOCYTES ABSOLUTE 0.77 10/3/uL (0.21-1.20); NEUTROPHILS 52.4 %; NEUTROPHILS ABSOLUTE 2.43 10/3/uL (2.02-8.40); RED CELL COUNT 2.91 10/6/uL (4.0-5.6); WHITE BLOOD CELLS 4.6 10/3/uL (4.5-10.5)
[2016-10-20 06:03] LABS: MANUAL DIFF NO %; PLATELET COUNT 82 10/3/uL (150-400)
[2016-10-20 06:04] LABS: PROTIME (NOT ORD) 22.9 SEC (12.0-14.5)
[2016-10-20 06:10] LABS: ALBUMIN 3.5 G/DL (3.5-5.0); ALKALINE PHOSPHATASE 143 U/L (45-117); BUN (BLOOD UREA NITROGEN) 20 MG/DL (6-23); CALCIUM, SERUM 8.7 MG/DL (8.5-10.4); CHLORIDE, SERUM 103 MMOL/L (96-112); CO2 (CARBON DIOXIDE) 31 MMOL/L (24-34); CREATININE 1.29 MG/DL (0.55-1.02); DIRECT BILIRUBIN 0.9 MG/DL (0.0-0.4); GFR AFRICAN AMERICAN 50 ML/MIN (>=60); GFR NON AFRICAN AMERICAN 43 ML/MIN (>=60); GLUCOSE, SERUM 90 MG/DL (60-99); INDIRECT BILIRUBIN(NOT ORDER) 3.3 MG/DL (0.1-0.9); POTASSIUM, SERUM 4.1 MMOL/L (3.5-5.3); SGOT(AST) 59 U/L (5-40); SGPT(ALT) 31 U/L (5-65); SODIUM, SERUM 142 MMOL/L (135-148); TOTAL BILIRUBIN 4.2 MG/DL (0-1.2); TOTAL PROTEIN 6.3 G/DL (6.0-8.5)
[2016-12-20] MEDS ORDERED: BUM1 PO (17:00)
[2016-12-20] MEDS ORDERED: XIFAXAN550 MG PO (17:00)
[2016-12-20] MEDS ORDERED: ULTRAM50 PO (17:01)
[2016-12-20] MEDS ORDERED: VOLTAREN1 % TOP (17:03)
[2016-12-20] MEDS ORDERED: LEVEMIR SC (17:04)
[2016-12-20] MEDS ORDERED: PRILOSEC40 MG PO (17:05)
[2016-12-20] MEDS ORDERED: REG5 PO (17:05)
[2016-12-20] MEDS ORDERED: KDUR10 PO (17:06)
[2016-12-20] MEDS ORDERED: SPIR100 PO (17:06)
[2016-12-20] MEDS ORDERED: SUCR PO (17:07)
[2017-03-03] MEDS ORDERED: LEVEMIR SC (03:57)
[2017-03-03] MEDS ORDERED: BUM1 PO (03:57)
[2017-03-03] MEDS ORDERED: LOP25 PO (03:58)
[2017-03-03] MEDS ORDERED: REG5 PO (03:58)
[2017-03-03] MEDS ORDERED: SPIRO50 PO (03:59)
[2017-03-03] MEDS ORDERED: PROTONIX PO (03:59)
[2017-03-03] MEDS ORDERED: ZOL50 PO (04:00)
[2017-03-03] MEDS ORDERED: XIFAXAN550 MG PO (04:00)
[2017-03-03] MEDS ORDERED: ULTRAM50 PO (04:01)
[2017-03-29] MEDS ORDERED: GENERLAC PO (18:46)
[2017-03-29] MEDS ORDERED: SUCR PO (18:47)
== END 2016-10-20 18:12 | disposition home or self-care (01) | DRG 442 ==
LOC: ER 20:15 → 4SO 22:47
PROVIDERS: Internal Medicine; Nurse Practitioner; Nurse Practitioner Acute Care
PROC: BW40ZZZ Ultrasonography of Abdomen (ICD-10-PCS; principal; 2016-10-17)
PROC: 0W9G3ZX Drainage of Peritoneal Cavity, Percutaneous Approach, Diagnostic (ICD-10-PCS; principal; 2016-10-17)
DX: K75.81 Nonalcoholic steatohepatitis (NASH) (principal); R18.8 Other ascites; D61.818 Other pancytopenia; D68.8 Other specified coagulation defects; K76.6 Portal hypertension; D69.59 Other secondary thrombocytopenia; I85.10 Secondary esophageal varices without bleeding; N18.3 Chronic kidney disease, stage 3 (moderate); Z68.43 Body mass index [BMI] 50.0-59.9, adult; G47.33 Obstructive sleep apnea (adult) (pediatric); E11.9 Type 2 diabetes mellitus without complications; E66.01 Morbid (severe) obesity due to excess calories; Z79.4 Long term (current) use of insulin; K74.69 Other cirrhosis of liver; I89.0 Lymphedema, not elsewhere classified
CPT/HCPCS: 49083; 71010; 80048; 80053; 80076; 81001; 82042; 82140; 82248; 82962; 83690; 83735; 83880; 84439; 84443; 85025; 85610; 85730; 87070; 87205; 89051; 93005; 96374; 99285; A9270-GY; J2405; P9047

== ENCOUNTER 2016-12-22 10:23 | Day surgery (SDC) | payer BC, OTHER ==
--- NOTE | ~2016-12-22 | EGD ---
EGD REPORT [facility] [address] [address] NAME: KATIE CALDERON : 52 STATUS : REG [facility]#: [id number] AGE: 66 ADM/REG DATE : 12/22/16 MR#: [id number] REPORT SERV DATE: 12/22/16 DICTATED BY: LEBRON STOREY DATE: 12/22/16 REPORT STATUS : Draft [facility]ANS[facility]ED [facility]: [facility] DATE: 12/22/16 Endoscopy Center Patient Name: Katie Calderon Date of : 1950 Attending MD: LEBRON STOREY MD Procedure Date No Time: 12/22/2016 Procedure: Upper GI endoscopy Indications: Epigastric abdominal pain, Dysphagia, Gastro-esophageal reflux disease Referring MD: JULINAO REYES Medicines: Propofol per Anesthesia Complications: No immediate complications. Procedure: Pre-Anesthesia Assessment: - ASA Grade Assessment: III - A patient with severe systemic disease. After obtaining informed consent, the endoscope was passed under direct vision. Throughout the procedure, the patient's blood pressure, pulse, and oxygen saturations were monitored continuously. The GIF [id number] was introduced through the mouth, and advanced to the third part of duodenum. The upper GI endoscopy was accomplished without difficulty. The patient tolerated the procedure well. Findings: Non-severe esophagitis with no bleeding was found in the entire esophagus. There is no endoscopic evidence of varices in the lower third of the esophagus. A benign-appearing, intrinsic mild stenosis was found in the upper third of the esophagus and was traversed. A guidewire was placed and the scope was withdrawn. Dilation was performed with a Savary dilator with mild resistance at 60 Fr. The esophagus looked satisfactory post dilation A small hiatus hernia was present. Seen on retroflexion, done prior to dilation There is no endoscopic evidence of varices in the cardia. Diffuse moderate inflammation characterized by congestion (edema), erosions, erythema and friability was found in the entire examined stomach. Biopsies were taken with a cold forceps for Helicobacter pylori testing. Localized mild inflammation characterized by congestion (edema) and erythema was found in the duodenal bulb. Biopsies were taken with a cold forceps for evaluation of celiac disease. And giardia, whipple's disease, and enteritis The 2nd part of the duodenum and 3rd part of the duodenum were normal. EGD REPORT [facility] [address] [facility] [place]. [address] NAME: KATIE CALDERON : 52 STATUS : [facility]#: [id number] AGE: 66 ADM/REG DATE : 12/22/16 MR#: [id number] REPORT SERV DATE: 12/22/16 DICTATED BY: LEBRON STOREY DATE: 12/22/16 REPORT STATUS : Draft TRANSCRIBED BY: [facility] DATE: 12/22/16 Biopsies were taken with a cold forceps for evaluation of celiac disease. And giardia, whipple's disease, and enteritis Impression: - Non-severe esophagitis. - Benign-appearing esophageal stricture. Dilated. - Hiatus hernia. - Gastritis. Biopsied. - Duodenitis. Biopsied. - Normal 2nd part of the duodenum and 3rd part of the duodenum. Biopsied. Recommendation: - Patient has a contact number available for emergencies. The signs and symptoms of potential delayed complications were discussed with the patient. Return to normal activities tomorrow. Written discharge instructions were provided to the patient. - diet is clear liquid today, full liquid tomorrow, soft mushy food the next day, and resume usual diet the day after that. - Continue present medications. - Discontinue Prilosec (omeprazole). - Use Protonix (pantoprazole) 40 mg PO BID. - take 30-60 minutes before breakfast and supper - Increase Bumex to 1mg Twice a day - Return to my office as previously scheduled. - Discharge patient to home. Procedure Code(s): --- Professional --- 28207, Esophagogastroduodenoscopy, flexible, transoral; with insertion of guide wire followed by passage of dilator(s) through esophagus over guide wire 09000, Esophagogastroduodenoscopy, flexible, transoral; with biopsy, single or multiple Diagnosis Code(s): --- Professional --- K20.9, Esophagitis, unspecified K22.2, Esophageal obstruction K44.9, Diaphragmatic hernia without obstruction or gangrene K29.70, Gastritis, unspecified, without bleeding K29.80, Duodenitis without bleeding R10.13, Epigastric pain R13.10, Dysphagia, unspecified K21.9, Gastro-esophageal reflux disease without esophagitis EGD REPORT [facility] [address] [address] NAME: KATIE CALDERON : [birth year] STATUS : [facility]#: [id number] AGE: 66 ADM/REG DATE : 12/22/16 MR#: [id number] REPORT SERV DATE: 12/22/16 DICTATED BY: LEBRON STOREY DATE: 12/22/16 REPORT STATUS : Draft TRANSCRIBED BY: [employer] DATE: 12/22/16 CPT copyright 2013 [employer]. All rights reserved. The codes documented in this report are preliminary and upon spear fisher review may be revised to meet current compliance requirements. Lebron Storey MD LEBRON STOREY MD 12/22/2016 1:55 PM This report has been signed electronically. Number of Addenda: 0 Note Initiated On: 12/22/2016 1:18 PM Scope Withdrawal Time 0 hours 0 minutes 0 seconds [id number] [place] [id number]
[~2016-12-22 10:23] MED LIST changes: +NOVOLOG SC
[2017-03-03] MEDS ORDERED: BUM1 PO (03:57)
[2017-03-03] MEDS ORDERED: LEVEMIR SC (03:57)
[2017-03-03] MEDS ORDERED: LOP25 PO (03:58)
[2017-03-03] MEDS ORDERED: REG5 PO (03:58)
[2017-03-03] MEDS ORDERED: PROTONIX PO (03:59)
[2017-03-03] MEDS ORDERED: SPIRO50 PO (03:59)
[2017-03-03] MEDS ORDERED: ZOL50 PO (04:00)
[2017-03-03] MEDS ORDERED: XIFAXAN550 MG PO (04:00)
[2017-03-03] MEDS ORDERED: ULTRAM50 PO (04:01)
[2017-03-29] MEDS ORDERED: GENERLAC PO (18:46)
[2017-03-29] MEDS ORDERED: SUCR PO (18:47)
== END 2016-12-22 23:59 | disposition home or self-care (01) ==
LOC: DMU 10:23
PROVIDERS: Internal Medicine Gastroenterology
PROC: 0DB98ZX Excision of Duodenum, Via Natural or Artificial Opening Endoscopic, Diagnostic (ICD-10-PCS; 2016-12-22)
PROC: 0D758ZZ Dilation of Esophagus, Via Natural or Artificial Opening Endoscopic (ICD-10-PCS; 2016-12-22)
PROC: 0DB68ZX Excision of Stomach, Via Natural or Artificial Opening Endoscopic, Diagnostic (ICD-10-PCS; principal; 2016-12-22 10:30)
DX: K29.50 Unspecified chronic gastritis without bleeding (principal); K22.2 Esophageal obstruction; K20.9 Esophagitis, unspecified; K29.80 Duodenitis without bleeding; K44.9 Diaphragmatic hernia without obstruction or gangrene; E66.9 Obesity, unspecified; E11.9 Type 2 diabetes mellitus without complications; K74.60 Unspecified cirrhosis of liver; I85.10 Secondary esophageal varices without bleeding; M19.90 Unspecified osteoarthritis, unspecified site; K21.9 Gastro-esophageal reflux disease without esophagitis; Z87.11 Personal history of peptic ulcer disease; Z79.4 Long term (current) use of insulin; Z79.899 Other long term (current) drug therapy
CPT/HCPCS: 82962; 88305

== ENCOUNTER 2017-01-14 05:13 | Inpatient (IN) | payer BC, OTHER ==
--- NOTE | ~2017-01-14 | HP ---
History And Physical [address] [place]. [address] NAME: KATIE RAMIREZ : 52 STATUS : ADM IN [facility]#: [id number] AGE: 66 ADM/REG DATE : 01/14/17 MR#: [id number] REPORT SERV DATE: 01/14/17 DICTATED BY: CAROLYN CINTRON DATE: 01/14/17 REPORT STATUS : Draft TRANSCRIBED BY: MODL DATE: 01/14/17 DATE OF ADMISSION: 01/14/2017 CHIEF COMPLAINT: A 66-year-old female with advanced PENNY and autoimmune cirrhosis, now presenting with abdominal pain and nausea. HISTORY OF PRESENTING ILLNESS: The patient's history was obtained through an interview with the patient and son coupled [facility] The patient has been debilitated from progressive cirrhosis caused by PENNY and likely a component of autoimmune hepatitis as well according to old studies that have been reviewed. It was just on the day leading up to admission noted the patient developed abdominal discomfort associated with increasing abdominal distention. She describes the abdominal pain is diffuse, full, aching quality, 9/10 severity that is unremitting. Today by the evening, the patient was so debilitated and weakened by her state that she could not even walk. She describes shortness of breath characterized by dyspnea on exertion related to the pressure in her abdomen, but no chest pain, no cough. She has had nausea, but no vomiting. No fevers or chills. No diarrhea. She has had a very poor appetite for several days. She has noticed decreased urine output. No dysuria. She admits she does not check her blood sugars very often with regard to her diabetes management. REVIEW OF SYSTEMS: Otherwise, a 14-point review of systems was obtained and was negative. PAST MEDICAL HISTORY: 1. PENNY and autoimmune hepatitis cirrhosis. 2. Ascites. 3. Chronic kidney disease, stage 3. Baseline creatinine of 1.3. 4. Anasarca. 5. Portal hypertension with varices with history of banding seen by Dr. Roque. 6. Hepatic encephalopathy. 7. Diabetes. 8. Morbid obesity. 9. Coagulopathy. 10.Lymphedema. 11.Pancytopenia. 12.Obstructive sleep apnea. History And Physical [address] [address] NAME: KATIE RAMIREZ : 52 STATUS : ADM IN PAT#: [id number] AGE: 66 ADM/REG DATE : 01/14/17 MR#: [id number] REPORT SERV DATE: 01/14/17 DICTATED BY: CAROLYN CINTRON DATE: 01/14/17 REPORT STATUS : Draft TRANSCRIBED BY: JODY DATE: 01/14/17 13.Esophageal stricture status post dilatation. 14.Urinary tract infection. 15.Nephrolithiasis. PAST SURGICAL HISTORY: 1. . 2. Hemorrhoids. ALLERGIES: NO KNOWN DRUG ALLERGIES. SOCIAL HISTORY: No tobacco abuse. No alcohol abuse. Lives with son and daughter. She is single. FAMILY HISTORY: Diabetes and cancer. CURRENT MEDICATIONS: Unknown at the time of this dictation. We have requested Pharmacy to help obtain a current medication list. PHYSICAL EXAMINATION: VITAL SIGNS: Temperature 97.4, pulse 120, blood pressure 121/72, respiratory rate 19, and O2 saturation 94% on room air. GENERAL: A pleasant, cooperative, female, in evidence of distress secondary to abdominal pain. HEENT: Pupils equal, round, and reactive to light. No conjunctival pallor. No scleral icterus. Nares are patent. Oropharynx is clear of obstruction. Very dry mucous membranes with cracking of the tongue and lips. NECK: Trachea midline. No thyromegaly. LYMPH: No cervical lymphadenopathy. No supraclavicular lymphadenopathy. RESPIRATORY: Clear to auscultation at bases. No wheezes, no rales, no rhonchi, but the patient does have a labored respiratory effort. CARDIOVASCULAR: Tachycardic. Regular rhythm. No murmurs, rubs, or gallops. The patient has chronic appearing lower extremity edema that is symmetrical. ABDOMEN: Quite distended by examination, diffusely tender as well. There is guarding throughout. No rebound. No hepatosplenomegaly can be appreciated on exam. DERMATOLOGICAL: Warm and dry extremities. No pallor. No cyanosis. PSYCHIATRIC: Normal affect. Good mood. Alert and oriented x3. LABORATORY DATA: Lactic acid 5.6, albumin 1.7. Procalcitonin 1.10. INR 1.8. AST 156, ALT 71, alkaline phosphatase 323. Total bilirubin 7.1, ammonia level 46. White blood cell count 16.1, hemoglobin 13, hematocrit 36, and platelets 104. Sodium 127 from baseline sodium of 142, potassium 5.4, chloride 95, bicarb 21, BUN 18, creatinine 1.94 from baseline creatinine of 1.3, and glucose 321. Urinalysis negative for infection, but shows 59 hyaline casts. History And Physical [address] [place]. [address] NAME: KATIE RAMIREZ : 52 STATUS : ADM IN PAT#: [id number] AGE: 66 ADM/REG DATE : 01/14/17 MR#: [id number] REPORT SERV DATE: 01/14/17 DICTATED BY: CAROLYN CINTRON DATE: 01/14/17 REPORT STATUS : Draft TRANSCRIBED BY: MODL DATE: 01/14/17 STUDIES: Chest x-ray by my own evaluation shows no acute cardiopulmonary process. ASSESSMENT AND PLAN: 1. Suspected sepsis of unclear source. This would be termed "severe sepsis" with lactic acid of 5.6, tachycardia, white blood cell count of 16.1, elevated procalcitonin. Check blood cultures. Place on IV Zosyn and IV vancomycin. 2. Cirrhosis with a combination of non-alcoholic steatohepatitis and autoimmune hepatitis. Current MELD score of 27. 3. Ascites rule out spontaneous bacterial peritonitis by obtaining an ultrasound-guided paracentesis today. 4. Anasarca. Try IV albumin for now. 5. Uncontrolled diabetes. Check hemoglobin A1c. Increase Levemir and place on sliding scale insulin. 6. Acute kidney injury. Place on chronic kidney disease, stage 3. KPL/MODL Carolyn Cintron M.D. / [id number] CC: MD Carol Rodriguez, WILLIAM Roque M.D.
--- NOTE | ~2017-01-14 | CN ---
Consultation Report [facility] [address] [place]. [address] NAME: KATIE RAMIREZ : 52 STATUS : ADM IN [facility]#: [id number] AGE: 66 ADM/REG DATE : 01/14/17 MR#: [id number] REPORT SERV DATE: 01/16/17 DICTATED BY: DE HUERTAS DATE: 01/16/17 REPORT STATUS : Draft TRANSCRIBED BY: MODL DATE: 01/16/17 CONSULTATION DATE OF CONSULTATION: 01/16/2017 REASON FOR CONSULTATION: New onset atrial fibrillation with RVR. HISTORY OF PRESENT ILLNESS: Ms. Ramirez is a very pleasant 66-year-old female with a history of autoimmune hepatitis, PENNY, portal hypertensive gastropathy with esophageal varices, status post banding, esophageal stricture, status post dilatation, diabetes and coagulopathy, who presented to [facility] on 01/14/2017 with abdominal pain, bloating and shortness of breath in the setting of SBP. This has been treated with a therapeutic paracentesis (3.2 L of fluid was removed on 01/14/2017). The patient has had interval improvement in her clinical symptoms on antibiotics as well. However, this morning she went into atrial fibrillation with RVR and was started on a diltiazem drip. This prompted consultation to cardiology today. She has no symptoms from the atrial fibrillation in speaking with her. She denies having any chest pains, pressures, palpitations, dizziness, or loss of consciousness. She feels fine at the current time. ALLERGIES: NONE. FAMILY HISTORY: Noncontributory for cardiovascular disease. SOCIAL HISTORY: The patient lives at home with her son. She denies drinking alcohol, smoking, or doing drugs. HOME MEDICATIONS: 1. Bumex 1 mg p.o. b.i.d. 2. Insulin. 3. Reglan. 4. Protonix. 5. Potassium. 6. Rifaximin. 7. Sertraline. 8. Aldactone 50 mg p.o. b.i.d. 9. Tramadol. PHYSICAL EXAMINATION: VITAL SIGNS: Blood pressure 128/75, pulse ranging from 90 to 120 (atrial fibrillation), temperature 97.5. GENERAL: Morbidly obese, no acute distress, well developed, well nourished, pleasant. NEURO: Awake, alert and oriented x3; no focal deficits, appropriate mood. HEENT: Moist mucous membranes, anicteric sclerae, no nasal discharge. NECK: No JVD, no carotid bruit. Consultation Report [facility] [address] [place]. [address] NAME: KATIE RAMIREZ : 52 STATUS : ADM IN PAT#: [id number] AGE: 66 ADM/REG DATE : 01/14/17 MR#: [id number] REPORT SERV DATE: 01/16/17 DICTATED BY: DE HUERTAS DATE: 01/16/17 REPORT STATUS : Draft TRANSCRIBED BY: JODY DATE: 01/16/17 LUNGS: Diminished breath sounds throughout. Normal work of breathing. No wheezes, rales, or rhonchi auscultated. CARDIAC: Irregularly irregular. Normal S1, S2. No murmurs, rubs, or gallops. ABD: Soft, non-tender, non-distended, no rebound or guarding. EXTREMITIES: 1+ pulses, bilateral lower extremities. Trace to 1+ lower extremity edema bilaterally. SKIN: Warm, dry and intact; no rash. PERTINENT TEST FINDINGS: Potassium 4.1, creatinine 1.78. White blood cell count 5.5, platelets 65. INR 1.9. Admission troponin 0.03. Admission BNP 123. Admission TSH 1.5. Albumin 2.1. EKG from this morning demonstrates atrial fibrillation with RVR (ventricular rate 155 beats per minute.) IMPRESSION AND PLAN: Ms. Ramirez is a pleasant 66-year-old female with a history of nonalcoholic steatohepatitis and autoimmune cirrhosis complicated with portal hypertension, gastropathy, varices, encephalopathy history, who presented to [facility] with spontaneous bacterial peritonitis, now resolved, with new onset atrial fibrillation as of this morning. Given her significant coagulopathy (INR 1.9, platelets 65), and presence of esophageal varices as well as portal hypertension, she is clearly not a good candidate for therapeutic anticoagulation. Accordingly, I recommend conservative rate control approach, up titration of metoprolol, with weaning of dilt drip. She may require multiple rate controlling agents, however, we will determine this over the next one to two days as we get her off her dilt drip. Otherwise, checking an echocardiogram will be helpful. Thank you for this referral, we will continue to follow with you. PIETER/MODL De Huertas MD / [id number] CC: MD Carol Rodriguez
--- NOTE | ~2017-01-14 | DS ---
Discharge Summary [facility] [address] [place]. [address] NAME: KATIE RAMIREZ : 52 STATUS : DIS IN PAT#: [id number] AGE: 66 ADM/REG DATE : 01/14/17 MR#: [id number] REPORT SERV DATE: 01/19/17 DICTATED BY: DILLON ELLER II DATE: 01/18/17 REPORT STATUS : Draft TRANSCRIBED BY: MODL DATE: 01/18/17 ADMISSION DATE: 01/14/2017 DISCHARGE DATE: 01/18/2017 DISCHARGE DIAGNOSES: 1. Atrial fibrillation with rapid ventricular response. 2. Sepsis, likely secondary to subacute bacterial peritonitis. 3. Nonalcoholic steatohepatitis cirrhosis. 4. Acute kidney injury on chronic kidney disease stage 3. 5. Diabetes mellitus type 2. 6. Morbid obesity. 7. Chronic anasarca. 8. Portal hypertension with varices and history of banding. 9. Chronic coagulopathy. 10.Chronic pancytopenia. 11.Obstructive sleep apnea. CONSULT: Dr. Mathis of [facility]. BRIEF HISTORY OF PRESENT ILLNESS: The patient is a 66-year-old female with the above history, who presented to [facility] due to abdominal pain and nausea. For detailed history and physical examination, please see Dr. Castelan's note from 01/14/2017. HOSPITAL COURSE: On admission, the patient had evidence for sepsis with a lactic acid of 5.6, tachycardia, and leukocytosis of 16 with elevated procalcitonin of unclear source. She did have abdominal pain and history of cirrhosis, so a paracentesis was done and 3.2 L of fluid was obtained. The cell count showed 516 nucleated cells, meeting criteria for subacute bacterial peritonitis. She had been started on vancomycin and Zosyn on admission and subsequent culture results were negative. Overall, the patient's white blood cell count came back down to around 7. Clinically, she has improved, but was also found to be in AFib with RVR. Cardiology was consulted. She is able to come off Cardizem drip and transitioned to Lopressor 25 mg b.i.d. She had an echocardiogram, which showed an intact LVEF of 50%, essentially unremarkable with no valvular disease. Her creatinine was mildly elevated from her baseline at 1.9 on admission and has subsequently remained stable at about 1.7 and 1.8. At this point, she has received five days of broad-spectrum antibiotics and we will not continue any further antibiotics. She is stable for discharge and will follow up with Dr. Roque in one to two weeks. DISCHARGE MEDICATIONS: 1. Bumex 1 mg p.o. b.i.d. 2. Levemir 20 units subcutaneously q.h.s. 3. Reglan 5 mg p.o. a.c. and h.s. 4. Protonix 40 mg p.o. b.i.d. 5. Xifaxan 550 mg p.o. b.i.d. 6. Zoloft 50 mg p.o. daily. 7. Spironolactone 50 mg p.o. b.i.d. Discharge Summary [address] [address] NAME: KATIE RAMIREZ : 52 STATUS : DIS IN PAT#: [id number] AGE: 66 ADM/REG DATE : 01/14/17 MR#: [id number] REPORT SERV DATE: 01/19/17 DICTATED BY: DILLON ELLER II DATE: 01/18/17 REPORT STATUS : Draft TRANSCRIBED BY: JODY DATE: 01/18/17 8. Tramadol 50 mg p.o. four times a day p.r.n. pain. 9. Potassium chloride 10 mEq p.o. daily p.r.n. DISCHARGE INSTRUCTIONS: The patient will follow up with Dr. Rouqe in one to two weeks. DICTATED BY: MD CARROL Crystal II/JODY Dillon Eller II, MD / [id number] CC: MD RALEIGH Crystal II, PATRICIA L
[2017-01-14 04:55] LABS: BASOPHILS 0.3 %; BASOPHILS ABSOLUTE 0.05 10/3/uL (0.0-0.16); EOSINOPHILS 0 %; IMMATURE GRANULOCYTES 1.4 %; IMMATURE GRANULOCYTES ABSOLUTE 0.22 10/3/uL (0.0-0.11); LYMPHOCYTES 2.6 %; LYMPHOCYTES ABSOLUTE 0.42 10/3/uL (0.67-4.30); MEAN CORPUS HGB CONC 35.1 g/dL (32.0-36.0); MEAN CORPUSCULAR HEMOGLOB 34.3 pg (26.0-34.0); MEAN CORPUSCULAR VOLUME 97.9 fL (80-100); MEAN PLATELET VOLUME 11.5 fL (9.2-13.0); MONOCYTES 9.1 %; MONOCYTES ABSOLUTE 1.46 10/3/uL (0.21-1.20); NEUTROPHILS 86.6 %; NEUTROPHILS ABSOLUTE 13.94 10/3/uL (2.02-8.40); PLATELET COUNT 104 10/3/uL (150-400); RBC DISTRIBUTION WIDTH 15.6 % (12.0-16.0)
[2017-01-14 04:59] LABS: ER CBC TAT 0 Hrs 08 Mins; HEMATOCRIT 36.5 % (36.0-48.0); HEMOGLOBIN 12.8 g/dL (12.0-16.0); MANUAL DIFF NO %; RED CELL COUNT 3.73 10/6/uL (4.0-5.6); WHITE BLOOD CELLS 16.1 10/3/uL (4.5-10.5)
[2017-01-14 05:04] LABS: ACETONE NEG
[2017-01-14 05:09] LABS: INTERNATIONAL NORMAL RATI 1.8 UNITS (-); PARTIAL THROMBO TIME 36.9 SEC (22.5-37.2); PROTIME (NOT ORD) 20.8 SEC (12.0-14.5)
[2017-01-14 05:16] LABS: LACTATE 5.6 MMOL/L (0.3-2.4)
[2017-01-14 05:18] LABS: BUN (BLOOD UREA NITROGEN) 18 MG/DL (6-23); CALCIUM, SERUM 8.4 MG/DL (8.5-10.4); CHLORIDE, SERUM 95 MMOL/L (96-112); SGPT(ALT) 71 U/L (5-65); TOTAL PROTEIN 6.9 G/DL (6.0-8.5)
[2017-01-14 05:19] LABS: A/G RATIO 0.3 (0.7-1.9); ALBUMIN 1.7 G/DL (3.5-5.0); ALKALINE PHOSPHATASE 323 U/L (45-117); CO2 (CARBON DIOXIDE) 21 MMOL/L (24-34); CREATININE 1.94 MG/DL (0.55-1.02); DIRECT BILIRUBIN 2.8 MG/DL (0.0-0.4); GFR AFRICAN AMERICAN 31 ML/MIN (>=60); GFR NON AFRICAN AMERICAN 27 ML/MIN (>=60); GLOBULIN 5.2 G/DL (2.5-4.1); GLUCOSE, SERUM 321 MG/DL (60-99); INDIRECT BILIRUBIN(NOT ORDER) 4.3 MG/DL (0.1-0.9); POTASSIUM, SERUM 5.4 MMOL/L (3.5-5.3); SODIUM, SERUM 127 MMOL/L (135-148); TOTAL BILIRUBIN 7.1 MG/DL (0-1.2)
[2017-01-14 05:20] LABS: SGOT(AST) 156 U/L (5-40)
[2017-01-14 06:27] LABS: ASCORBIC ACID (UR NOT ORDER) NEG (NEG); BILIRUBIN, URINE NEGATIVE (NEG); ER URINALYSIS TAT 0 Hrs 00 Mins; KETONE, URINE NEGATIVE (NEG); LEUKOCYTE ESTERASE(NOT OR NEG (NEG); NITRITE (URINE) NEG (NEG); WBC (NOT ORDERED) (RFLEX) 3 (0-5)
[2017-01-14 09:14] LABS: HEMOGLOBIN 11.3 g/dL (12.0-16.0); MEAN CORPUS HGB CONC 34.9 g/dL (32.0-36.0); MEAN CORPUSCULAR HEMOGLOB 33.5 pg (26.0-34.0); MEAN CORPUSCULAR VOLUME 96.1 fL (80-100); MEAN PLATELET VOLUME 11.6 fL (9.2-13.0); PLATELET COUNT 90 10/3/uL (150-400); RBC DISTRIBUTION WIDTH 15.6 % (12.0-16.0); RED CELL COUNT 3.37 10/6/uL (4.0-5.6); WHITE BLOOD CELLS 12.1 10/3/uL (4.5-10.5)
[2017-01-14 09:17] LABS: HEMATOCRIT 32.4 % (36.0-48.0); MANUAL DIFF YES %
[2017-01-14 09:23] LABS: INTERNATIONAL NORMAL RATI 1.8 UNITS (-); PARTIAL THROMBO TIME 24.5 SEC (22.5-37.2)
[2017-01-14 09:42] LABS: A/G RATIO 0.4 (0.7-1.9); ALBUMIN 1.7 G/DL (3.5-5.0); BUN (BLOOD UREA NITROGEN) 20 MG/DL (6-23); CHLORIDE, SERUM 96 MMOL/L (96-112); CO2 (CARBON DIOXIDE) 22 MMOL/L (24-34); CREATININE 1.87 MG/DL (0.55-1.02); GFR AFRICAN AMERICAN 32 ML/MIN (>=60); GFR NON AFRICAN AMERICAN 28 ML/MIN (>=60); GLOBULIN 4.5 G/DL (2.5-4.1); GLUCOSE, SERUM 311 MG/DL (60-99); POTASSIUM, SERUM 4.9 MMOL/L (3.5-5.3); SGOT(AST) 137 U/L (5-40); SGPT(ALT) 61 U/L (5-65); SODIUM, SERUM 130 MMOL/L (135-148); TOTAL PROTEIN 6.2 G/DL (6.0-8.5); TROPONIN I 0.03 NG/ML (<0.05)
[2017-01-14 09:43] LABS: ALKALINE PHOSPHATASE 266 U/L (45-117); TOTAL BILIRUBIN 6.6 MG/DL (0-1.2)
[2017-01-14] MEDS ORDERED: PROTONIX PO (09:50)
[2017-01-14] MEDS ORDERED: SPIRO50 PO (09:51)
[2017-01-14 09:52] LABS: BAND NEUTROPHILS 5 %; LYMPHOCYTES 5 %; LYMPHOCYTES ABSOLUTE (CALC) 0.61 10/3/uL (0.67-4.30); MONOCYTES 8 %; MONOCYTES ABSOLUTE (CALC) 0.97 10/3/uL (0.21-1.20); NEUTROPHILS ABSOLUTE (CALC) 10.53 10/3/uL (2.02-8.40); PLATELET ESTIMATE DEC (ADEQUATE); SEGMENTED NEUTROPHIL (0) 82 %; TOTAL NUCLEATED CELLS 100
[2017-01-14 09:53] LABS: RBC MORPHOLOGY NORM (NORMAL)
[2017-01-14] MEDS ORDERED: ZOL50 PO (09:53)
[2017-01-14 09:55] LABS: B NATRIURETIC PEPTIDE (BNP) 123.3 PG/ML (< 100.0)
[2017-01-14 10:05] LABS: PROCALCITONIN 1.28 ng/mL (<0.5)
[2017-01-14 11:10] LABS: B NATRIURETIC PEPTIDE (BNP) 80.3 PG/ML (< 100.0)
[2017-01-14 12:45] LABS: GLYCOHEMOGLOBIN (HbA1c) 8.5 % (4.7-6.1)
[2017-01-14 13:43] LABS: BF ALBUMIN 0.2 G/DL; GLUCOSE BODY FL (NOT ORD) 324 MG/DL
[2017-01-14 13:46] LABS: BD FL LYMPH (NOT ORD) 30 %; BD FL SOURCE (NOT ORD) PERITONEAL; BF BASO (NOT OF) 0 %; BF LARGE MONONUCLEAR 57 %; BODY FLUID EOS (NOT ORD) 0 %; BODY FLUID SEG (NOT ORD) 13 %
[2017-01-14 14:51] LABS: BF TOTAL CELL CT (NOT ORD 516 /MM3; BODY FLUID RBC (NOT ORD) 242 /MM3
[2017-01-15 05:35] LABS: BASOPHILS 0.2 %; BASOPHILS ABSOLUTE 0.01 10/3/uL (0.0-0.16); EOSINOPHILS 0.4 %; EOSINOPHILS ABSOLUTE 0.02 10/3/uL (0.0-0.53); HEMOGLOBIN 10.5 g/dL (12.0-16.0); IMMATURE GRANULOCYTES 1.1 %; IMMATURE GRANULOCYTES ABSOLUTE 0.06 10/3/uL (0.0-0.11); LYMPHOCYTES 12.2 %; LYMPHOCYTES ABSOLUTE 0.66 10/3/uL (0.67-4.30); MEAN CORPUSCULAR HEMOGLOB 34.3 pg (26.0-34.0); MONOCYTES ABSOLUTE 0.81 10/3/uL (0.21-1.20); NEUTROPHILS 71.1 %; NEUTROPHILS ABSOLUTE 3.85 10/3/uL (2.02-8.40); PLATELET COUNT 73 10/3/uL (150-400); RBC DISTRIBUTION WIDTH 15.9 % (12.0-16.0); RED CELL COUNT 3.06 10/6/uL (4.0-5.6); WHITE BLOOD CELLS 5.4 10/3/uL (4.5-10.5)
[2017-01-15 05:36] LABS: MANUAL DIFF NO %
[2017-01-15 05:46] LABS: CALCIUM, SERUM 8.1 MG/DL (8.5-10.4); CHLORIDE, SERUM 98 MMOL/L (96-112); CREATININE 1.71 MG/DL (0.55-1.02); GFR AFRICAN AMERICAN 36 ML/MIN (>=60); GFR NON AFRICAN AMERICAN 31 ML/MIN (>=60); SODIUM, SERUM 130 MMOL/L (135-148)
[2017-01-15 05:50] LABS: ALBUMIN 2.2 G/DL (3.5-5.0); BUN (BLOOD UREA NITROGEN) 24 MG/DL (6-23); CO2 (CARBON DIOXIDE) 28 MMOL/L (24-34); GLUCOSE, SERUM 155 MG/DL (60-99); PHOSPHORUS, SERUM 2.5 MG/DL (2.5-4.5); POTASSIUM, SERUM 4.9 MMOL/L (3.5-5.3)
[2017-01-15 06:09] LABS: PLATELET ESTIMATE DEC (ADEQUATE); RBC MORPHOLOGY NORM (NORMAL)
[2017-01-16 05:53] LABS: BASOPHILS 0.4 %; BASOPHILS ABSOLUTE 0.02 10/3/uL (0.0-0.16); EOSINOPHILS 2.2 %; EOSINOPHILS ABSOLUTE 0.12 10/3/uL (0.0-0.53); HEMATOCRIT 30.6 % (36.0-48.0); HEMOGLOBIN 10.8 g/dL (12.0-16.0); IMMATURE GRANULOCYTES 0.9 %; IMMATURE GRANULOCYTES ABSOLUTE 0.05 10/3/uL (0.0-0.11); LYMPHOCYTES 17.5 %; LYMPHOCYTES ABSOLUTE 0.96 10/3/uL (0.67-4.30); MEAN CORPUS HGB CONC 35.3 g/dL (32.0-36.0); MEAN CORPUSCULAR HEMOGLOB 34.1 pg (26.0-34.0); MEAN CORPUSCULAR VOLUME 96.5 fL (80-100); MEAN PLATELET VOLUME 11.5 fL (9.2-13.0); MONOCYTES 12.6 %; MONOCYTES ABSOLUTE 0.69 10/3/uL (0.21-1.20); NEUTROPHILS 66.4 %; NEUTROPHILS ABSOLUTE 3.64 10/3/uL (2.02-8.40); PLATELET COUNT 65 10/3/uL (150-400); RBC DISTRIBUTION WIDTH 15.8 % (12.0-16.0); RED CELL COUNT 3.17 10/6/uL (4.0-5.6); WHITE BLOOD CELLS 5.5 10/3/uL (4.5-10.5)
[2017-01-16 05:55] LABS: MANUAL DIFF NO %
[2017-01-16 06:01] LABS: ALBUMIN 2.1 G/DL (3.5-5.0); BUN (BLOOD UREA NITROGEN) 24 MG/DL (6-23); CALCIUM, SERUM 8.2 MG/DL (8.5-10.4); CHLORIDE, SERUM 97 MMOL/L (96-112); CO2 (CARBON DIOXIDE) 28 MMOL/L (24-34); CREATININE 1.78 MG/DL (0.55-1.02); GFR AFRICAN AMERICAN 34 ML/MIN (>=60); GFR NON AFRICAN AMERICAN 29 ML/MIN (>=60); GLUCOSE, SERUM 181 MG/DL (60-99); PHOSPHORUS, SERUM 2.6 MG/DL (2.5-4.5); POTASSIUM, SERUM 4.1 MMOL/L (3.5-5.3); SODIUM, SERUM 132 MMOL/L (135-148)
[2017-01-16 08:42] LABS: PLATELET ESTIMATE DEC (ADEQUATE); RBC MORPHOLOGY NORM (NORMAL)
[2017-01-16 09:23] LABS: INTERNATIONAL NORMAL RATI 1.9 UNITS (-); PARTIAL THROMBO TIME 48.7 SEC (22.5-37.2); PROTIME (NOT ORD) 21.9 SEC (12.0-14.5)
[2017-01-17 06:03] LABS: BASOPHILS 0.3 %; BASOPHILS ABSOLUTE 0.02 10/3/uL (0.0-0.16); EOSINOPHILS 2.5 %; EOSINOPHILS ABSOLUTE 0.19 10/3/uL (0.0-0.53); HEMATOCRIT 33.1 % (36.0-48.0); HEMOGLOBIN 11.5 g/dL (12.0-16.0); IMMATURE GRANULOCYTES 0.5 %; IMMATURE GRANULOCYTES ABSOLUTE 0.04 10/3/uL (0.0-0.11); LYMPHOCYTES 13.1 %; LYMPHOCYTES ABSOLUTE 0.98 10/3/uL (0.67-4.30); MANUAL DIFF NO %; MEAN CORPUS HGB CONC 34.7 g/dL (32.0-36.0); MEAN CORPUSCULAR HEMOGLOB 34.1 pg (26.0-34.0); MEAN CORPUSCULAR VOLUME 98.2 fL (80-100); MEAN PLATELET VOLUME 12.3 fL (9.2-13.0); MONOCYTES 14.2 %; MONOCYTES ABSOLUTE 1.06 10/3/uL (0.21-1.20); NEUTROPHILS 69.4 %; NEUTROPHILS ABSOLUTE 5.19 10/3/uL (2.02-8.40); PLATELET COUNT 78 10/3/uL (150-400); RBC DISTRIBUTION WIDTH 15.9 % (12.0-16.0); RED CELL COUNT 3.37 10/6/uL (4.0-5.6); WHITE BLOOD CELLS 7.5 10/3/uL (4.5-10.5)
[2017-01-17 06:07] LABS: INTERNATIONAL NORMAL RATI 1.7 UNITS (-); PROTIME (NOT ORD) 19.6 SEC (12.0-14.5)
[2017-01-17 06:16] LABS: A/G RATIO 0.4 (0.7-1.9); ALBUMIN 1.9 G/DL (3.5-5.0); BUN (BLOOD UREA NITROGEN) 27 MG/DL (6-23); CALCIUM, SERUM 7.8 MG/DL (8.5-10.4); CHLORIDE, SERUM 100 MMOL/L (96-112); CO2 (CARBON DIOXIDE) 26 MMOL/L (24-34); CREATININE 1.71 MG/DL (0.55-1.02); GFR AFRICAN AMERICAN 36 ML/MIN (>=60); GFR NON AFRICAN AMERICAN 31 ML/MIN (>=60); GLOBULIN 4.3 G/DL (2.5-4.1); GLUCOSE, SERUM 150 MG/DL (60-99); SGPT(ALT) 69 U/L (5-65); SODIUM, SERUM 135 MMOL/L (135-148); TOTAL PROTEIN 6.2 G/DL (6.0-8.5)
[2017-01-17 06:17] LABS: ALKALINE PHOSPHATASE 210 U/L (45-117); POTASSIUM, SERUM 4.6 MMOL/L (3.5-5.3); SGOT(AST) 178 U/L (5-40); TOTAL BILIRUBIN 3.7 MG/DL (0-1.2)
[2017-01-17 06:31] LABS: PLATELET ESTIMATE DEC (ADEQUATE); RBC MORPHOLOGY NORM (NORMAL)
[2017-01-18 05:16] LABS: HEMATOCRIT 32.2 % (36.0-48.0); HEMOGLOBIN 11.3 g/dL (12.0-16.0); MEAN CORPUS HGB CONC 35.1 g/dL (32.0-36.0); MEAN CORPUSCULAR HEMOGLOB 34.5 pg (26.0-34.0); MEAN CORPUSCULAR VOLUME 98.2 fL (80-100); MEAN PLATELET VOLUME 13.3 fL (9.2-13.0); PLATELET COUNT 76 10/3/uL (150-400); RBC DISTRIBUTION WIDTH 15.8 % (12.0-16.0); RED CELL COUNT 3.28 10/6/uL (4.0-5.6); WHITE BLOOD CELLS 7.1 10/3/uL (4.5-10.5)
[2017-01-18 05:18] LABS: MANUAL DIFF YES %
[2017-01-18 05:30] LABS: A/G RATIO 0.5 (0.7-1.9); BUN (BLOOD UREA NITROGEN) 29 MG/DL (6-23); CALCIUM, SERUM 7.9 MG/DL (8.5-10.4); CHLORIDE, SERUM 96 MMOL/L (96-112); CO2 (CARBON DIOXIDE) 28 MMOL/L (24-34); CREATININE 1.85 MG/DL (0.55-1.02); GFR AFRICAN AMERICAN 33 ML/MIN (>=60); GFR NON AFRICAN AMERICAN 28 ML/MIN (>=60); GLOBULIN 4.2 G/DL (2.5-4.1); POTASSIUM, SERUM 4.2 MMOL/L (3.5-5.3); SGOT(AST) 160 U/L (5-40); SGPT(ALT) 67 U/L (5-65); SODIUM, SERUM 132 MMOL/L (135-148); TOTAL PROTEIN 6.2 G/DL (6.0-8.5)
[2017-01-18 05:33] LABS: ALKALINE PHOSPHATASE 191 U/L (45-117); GLUCOSE, SERUM 201 MG/DL (60-99); TOTAL BILIRUBIN 4.2 MG/DL (0-1.2)
[2017-01-18 05:59] LABS: BAND NEUTROPHILS 2 %; EOSINOPHILS 1 %; EOSINOPHILS ABSOLUTE (CALC) 0.07 10/3/uL (0.0-0.53); LYMPHOCYTES 9 %; LYMPHOCYTES ABSOLUTE (CALC) 0.64 10/3/uL (0.67-4.30); MONOCYTES 9 %; MONOCYTES ABSOLUTE (CALC) 0.64 10/3/uL (0.21-1.20); NEUTROPHILS ABSOLUTE (CALC) 5.75 10/3/uL (2.02-8.40); PLATELET ESTIMATE DEC (ADEQUATE); RBC MORPHOLOGY NORM (NORMAL); SEGMENTED NEUTROPHIL (0) 79 %; TOTAL NUCLEATED CELLS 100
[2017-01-18] MEDS ORDERED: LOP25 PO (18:14)
[2017-03-03] MEDS ORDERED: LEVEMIR SC (03:57)
[2017-03-03] MEDS ORDERED: BUM1 PO (03:57)
[2017-03-03] MEDS ORDERED: REG5 PO (03:58)
[2017-03-03] MEDS ORDERED: LOP25 PO (03:58)
[2017-03-03] MEDS ORDERED: PROTONIX PO (03:59)
[2017-03-03] MEDS ORDERED: SPIRO50 PO (03:59)
[2017-03-03] MEDS ORDERED: ZOL50 PO (04:00)
[2017-03-03] MEDS ORDERED: XIFAXAN550 MG PO (04:00)
[2017-03-03] MEDS ORDERED: ULTRAM50 PO (04:01)
[2017-03-29] MEDS ORDERED: GENERLAC PO (18:46)
[2017-03-29] MEDS ORDERED: SUCR PO (18:47)
== END 2017-01-18 19:51 | disposition home or self-care (01) | DRG 871 ==
LOC: ER 05:13 → 7NO 05:53
PROVIDERS: Hospitalist; Internal Medicine; Nurse Practitioner
PROC: 0W9G3ZZ Drainage of Peritoneal Cavity, Percutaneous Approach (ICD-10-PCS; principal; 2017-01-14)
DX: A41.9 Sepsis, unspecified organism (principal); K65.2 Spontaneous bacterial peritonitis; N17.9 Acute kidney failure, unspecified; D61.818 Other pancytopenia; I85.10 Secondary esophageal varices without bleeding; R18.8 Other ascites; Z68.43 Body mass index [BMI] 50.0-59.9, adult; K76.6 Portal hypertension; K74.69 Other cirrhosis of liver; K75.4 Autoimmune hepatitis; K75.81 Nonalcoholic steatohepatitis (NASH); N18.3 Chronic kidney disease, stage 3 (moderate); G47.33 Obstructive sleep apnea (adult) (pediatric); I48.91 Unspecified atrial fibrillation; E66.01 Morbid (severe) obesity due to excess calories; E11.22 Type 2 diabetes mellitus with diabetic chronic kidney disease; K31.89 Other diseases of stomach and duodenum; E11.65 Type 2 diabetes mellitus with hyperglycemia; R65.20 Severe sepsis without septic shock; Z87.442 Personal history of urinary calculi; Z83.3 Family history of diabetes mellitus
CPT/HCPCS: 49083; 71010; 80053; 80069; 80202; 81001; 82009; 82042; 82140; 82248; 82945; 82962; 83036; 83605; 83690; 83735; 83880; 84145; 84443; 84484; 85025; 85610; 85730; 87040; 87070; 87205; 89051; 93005; 99291; A9270-GY; C8929; C9113; J2405; J2543; J3370; J3475; P9047; Q9957